=== PATIENT | female | born 2000 | race Caucasian/White ===

== ENCOUNTER 2025-04-29 20:15 | Emergency (ER) | payer MEDICAID, SELFPAY ==
[2025-04-29 20:17] VITALS: BMI 64.5
[2025-04-29 21:18] VITALS: BP 106/69; PULSE 112; RESP 16; TEMP 37.9; O2SAT 97
--- NOTE | 2025-04-29 21:50 | PD.EDNV ---
Nausea/Vomit./Diarrhea-RME/HPI General Chief complaint: Fever Stated complaint: 32 WKS PREG FEVER BODY ACHES NV Time Seen by Provider: 04/29/25 20:43 Arrival date/time: 04/29/25 20:15 RME / HPI RME / HPI Narrative: 25-year-old, 32-week female presents to the ED with a complaint of nausea and vomiting with the inability to keep anything down today. She has also had significant body aches. She was unaware of a fever until she arrived here when her temperature was noted to be 100.2. She was seen by her LEAD REFINERY SUPERVISOR today and given Zofran for her nausea and vomiting which she feels is helping. She has not had any vomiting since taking that medication. She denies any abdominal pain or pelvic cramping. She denies any dysuria or frequency. She denies any cough or difficulty breathing. Related Data Allergies Allergy/AdvReac Type Severity Reaction Status Date / Time No Known Allergies Allergy Verified 04/29/25 20:20 Review of Systems Review of Systems Systems Reviewed: All systems reviewed, normal except as documented Past Medical History Social History SMOKING STATUS: Never smoker ED Exam Narrative Physical exam: Alert and oriented 25-year-old female, no acute distress. Mild tachycardia noted, lungs are clear, no CVA tenderness noted. Abdomen is soft with minimal generalized tenderness. Moves all extremities well. No edema noted to the bilateral lower extremities. She has moist mucous membranes. No erythema noted to the posterior pharynx. Course Orders Category Date Time Status Bedside COVID-19 Antigen Test NOW Care 04/29/25 20:21 Active Bedside Influenza A&B Antigen Test NOW Care 04/29/25 20:21 Completed Vital Signs Vital signs: Vital Signs Temperature 100.2 F 04/29/25 21:18 Pulse Rate 112 H 04/29/25 21:18 Respiratory Rate 16 04/29/25 21:18 Blood Pressure 106/69 04/29/25 21:18 Pulse Oximetry (%) 97 04/29/25 21:18 Oxygen Delivery Method Room Air 04/29/25 21:18 Discharge Plan Patient/Caregiver Discharge Instructions Print Language: Lao
--- NOTE | 2025-04-29 23:01 | PC.NURSE ---
Pt was called for vitals and did not answer.
--- NOTE | 2025-04-29 23:39 | PC.NURSE ---
PT CALLED FROM [facility] NO ANSWER
--- NOTE | 2025-04-30 00:11 | PC.NURSE ---
PT CALLED FROM [facility] NO ANSWER
== END 2025-04-30 00:29 | disposition left against medical advice (07) ==
PROVIDERS: Emergency Provider Emergency Medicine
DX: O21.2 Late vomiting of pregnancy (principal); Z3A.32 32 weeks gestation of pregnancy
CPT/HCPCS: 87400; 99283

== ENCOUNTER 2025-05-30 09:41 | Observation (INO) | payer MEDICAID, SELFPAY ==
[2025-05-30] VITALS (111 sets, daily range): BP systolic 0–115; BP diastolic 0–75; PULSE 63–145; RESP 16–98; TEMP 36.8; O2SAT 97–100; BMI 31.1
--- NOTE | 2025-05-30 10:06 | XR_ITS ---
Examination: Complete OB ultrasound greater than 14 weeks Date and time of exam: May 30, 2025 1018 hours INDICATIONS: Onset vaginal bleeding today Findings: Viable intrauterine single fetus with single amniotic sac presentation cephalic spine maternal right. Cardiac motion 145 BPM Placenta right lateral grade 3 Umbilical cord insertion seen. Amniotic fluid index 12.1 cm Cervix 3.0 cm Ovaries obscured by bowel gas. Composite estimated gestational age based on BPD, head circumference, abdominal circumference, femur length is 34 weeks 6 days Estimated weight 2585 g. Survey of intracranial anatomy, spinal anatomy, abdominal anatomy, four-chamber heart performed with no abnormalities identified. Impression: Viable intrauterine gestation cephalic presentation Placenta right lateral grade 3 no abruption.
[2025-05-30 11:13] LABS: Basophils # (Auto) 0.0 Thou/mm3 (0.0-0.2); Basophils % (Auto) 0 % (0-2.5); Eosinophils # (Auto) 0.1 Thou/mm3 (0.0-0.5); Eosinophils % (Auto) 1 % (0-10); Hematocrit 27.0 % (36.0-46.0); Immature Granulocytes Auto 0.02 Thou/mm3 (0.00-0.00); Lymphocytes # (Auto) 2.5 Thou/mm3 (1.0-4.8); Lymphocytes % (Auto) 25 % (10-50); Mean Corpuscular HGB Conc 30.4 g/dl (31.0-37.0); Mean Corpuscular Hemoglobin 23.5 pg (25.0-35.0); Mean Corpuscular Volume 77 fL (80-100); Monocytes # (Auto) 0.6 Thou/mm3 (0.0-0.8); Monocytes % (Auto) 6 % (0-12); Neutrophils # (Auto) 6.7 Thou/mm3 (1.8-7.7); Neutrophils % (Auto) 68 % (37-80); Nucleated Red Blood Cell # 0.02 Thou/mm3 (0.00-0.00); Nucleated Red Blood Cell % 0 /100 WBC (0); Platelet Count 177 Thou/mm3 (140-440); RDW Standard Deviation 43.0 fL (36.4-46.3); Red Blood Count 3.49 Miln/mm3 (4.00-5.20); White Blood Count 9.9 Thou/mm3 (3.6-11.0)
[2025-05-30 11:23] LABS: Hemoglobin 8.2 g/dL (12.0-16.0)
[2025-05-30 11:25] LABS: Fibrinogen 519 mg/dL (175-375); INR 1.0 (0.9-1.3); Partial Thromboplastin Time 23.4 Seconds (22.0-36.0); Prothrombin Time 10.5 Seconds (9.0-12.2)
[2025-05-30 13:03] LABS: Alanine Aminotransferase < 7 U/L (10-49); Albumin, Serum 3.9 gm/dL (3.5-5.0); Albumin/Globulin Ratio 1.5 (1.2-2.2); Alkaline Phosphatase 96 U/L (46-116); Anion Gap 10 (7-16); Aspartate Amino Transferase 22 U/L (0-34); BUN/Creatinine Ratio 8 Ratio (12-20); Bilirubin,Total 0.9 mg/dL (0.3-1.2); Blood Urea Nitrogen 5 mg/dL (9-23); Calcium 9.4 mg/dL (8.3-10.6); Calcium (Corrected) 9.5 mg/dL (8.5-10.1); Carbon Dioxide 20.9 mMol/L (20.0-31.0); Chloride 105 mMol/L (98-107); Creatinine (Component) 0.6 mg/dL (0.6-1.3); Estimated Creatinine Clearance 129.5 mL/min (>60); Globulin 2.6 gm/dL (2.3-3.5); Glucose 107 mg/dL (74-106); LDH (Lactate Dehydrogenase) 158 U/L (120-246); Osmolality,Calculated 269 (275-295); Potassium 3.8 mMol/L (3.4-5.1); Sodium 136 mMol/L (136-145); Total Protein 6.5 gm/dL (5.7-8.2); eGFR > 60 See Note
[2025-05-30 13:45] LABS: Syphilis Reactive (Nonreactive)
[2025-05-30 13:46] LABS: MHATP/TP-PA* See Sep Rpt
[2025-05-30] MEDS: RINGERS LACTATED 1000 ML 1,000 ML 125 ML IV ×2 (14:00→18:02)
[2025-05-30 15:37] LABS: Amphetamine/Metham Scrn,Ur OB Negative (Negative); Benzoylecgonine Screen, Ur OB Negative (Negative); Opiate Screen,Urine OB Negative (Negative); THC Screen,Urine OB Negative (Negative)
[2025-05-30 17:45] LABS: Basophils # (Auto) 0.0 Thou/mm3 (0.0-0.2); Basophils % (Auto) 0 % (0-2.5); Eosinophils # (Auto) 0.1 Thou/mm3 (0.0-0.5); Eosinophils % (Auto) 1 % (0-10); Hematocrit 27.5 % (36.0-46.0); Immature Granulocytes Auto 0.06 Thou/mm3 (0.00-0.00); Lymphocytes # (Auto) 2.4 Thou/mm3 (1.0-4.8); Lymphocytes % (Auto) 21 % (10-50); Mean Corpuscular HGB Conc 30.2 g/dl (31.0-37.0); Mean Corpuscular Hemoglobin 23.6 pg (25.0-35.0); Mean Corpuscular Volume 78 fL (80-100); Monocytes # (Auto) 0.5 Thou/mm3 (0.0-0.8); Monocytes % (Auto) 5 % (0-12); Neutrophils # (Auto) 8.3 Thou/mm3 (1.8-7.7); Neutrophils % (Auto) 73 % (37-80); Nucleated Red Blood Cell # 0.00 Thou/mm3 (0.00-0.00); Nucleated Red Blood Cell % 0 /100 WBC (0); Platelet Count 159 Thou/mm3 (140-440); RDW Standard Deviation 43.7 fL (36.4-46.3); Red Blood Count 3.52 Miln/mm3 (4.00-5.20); White Blood Count 11.4 Thou/mm3 (3.6-11.0)
--- NOTE | 2025-05-30 18:00 | XR_ITS ---
Examination: age limited TECHNIQUE: Limited transabdominal sonographic images pelvis Date and time: May 30, 2025, 1658 hours INDICATIONS: Onset vaginal bleeding today. FINDINGS: Multiple images of the placenta, no abruption noted Cardiac motion 148 BPM IMPRESSION: No placental abruption
[2025-05-30 18:07] LABS: Hemoglobin 8.3 g/dL (12.0-16.0)
== END 2025-05-30 18:31 | disposition home or self-care (01) ==
PROVIDERS: Admitting Provider Obstetrics & Gynecology; Visit Provider Obstetrics & Gynecology
DX: O46.93 Antepartum hemorrhage, unspecified, third trimester (principal); Z3A.34 34 weeks gestation of pregnancy
CPT/HCPCS: 36415; 59899; 76805; 76815; 80053; 80307; 83615; 85025; 85384; 85610; 85730; 86780; 86850; 86900; 86901; 86923; J7120

== ENCOUNTER 2025-06-03 09:04 | Outpatient (CLI) | payer MEDICAID, SELFPAY ==
[2025-06-03 09:11] VITALS: BP 108/59; PULSE 88
[2025-06-03 09:26] VITALS: BP 108/59; PULSE 88; RESP 16; RESP 98; TEMP 36.8; BMI 30.4
--- NOTE | 2025-06-03 09:33 | XR_ITS ---
Examination: Biophysical profile, ultrasound Date and time of exam: June 03, 2025 1107 hours INDICATIONS: Labor evaluation, history vaginal bleeding May 30, 2025 Technique: Multiple transabdominal sonographic images of the pelvis abdomen obtained. Attention is directed to the breathing movement, gross body movement, amniotic fluid volume and tone. Findings: Amniotic fluid index 10.0 cm Total biophysical profile is 8 of 8. breathing movement is 2. Gross body movement is 2. tone is 2. Qualitative amniotic fluid volume is 2 Impression: Biophysical profile is 8 of 8.
== END 2025-06-03 12:00 | disposition home or self-care (01) ==
LOC: S4S1 09:05 → S4SX 09:05
PROVIDERS: Referring Provider Obstetrics & Gynecology; Visit Provider Obstetrics & Gynecology
DX: Z34.90 Encounter for supervision of normal pregnancy, unspecified, unspecified trimester (principal); Z36.89 Encounter for other specified antenatal screening; Z3A.00 Weeks of gestation of pregnancy not specified
CPT/HCPCS: 59025; 76819

== ENCOUNTER 2025-06-06 19:15 | Inpatient (IN) | payer MEDICAID, SELFPAY ==
[2025-06-06] VITALS (29 sets, daily range): BP systolic 100–118; BP diastolic 57–71; PULSE 77–117; RESP 16–98; TEMP 36.6–36.8; O2SAT 97–100; BMI 31.0; BMI 30.9
[2025-06-06 21:13] LABS: Basophils # (Auto) 0.0 Thou/mm3 (0.0-0.2); Basophils % (Auto) 0 % (0-2.5); Eosinophils # (Auto) 0.1 Thou/mm3 (0.0-0.5); Eosinophils % (Auto) 1 % (0-10); Hematocrit 29.4 % (36.0-46.0); Immature Granulocytes Auto 0.05 Thou/mm3 (0.00-0.00); Lymphocytes # (Auto) 2.2 Thou/mm3 (1.0-4.8); Lymphocytes % (Auto) 20 % (10-50); Mean Corpuscular HGB Conc 29.9 g/dl (31.0-37.0); Mean Corpuscular Hemoglobin 22.8 pg (25.0-35.0); Mean Corpuscular Volume 76 fL (80-100); Monocytes # (Auto) 0.6 Thou/mm3 (0.0-0.8); Monocytes % (Auto) 6 % (0-12); Neutrophils # (Auto) 7.8 Thou/mm3 (1.8-7.7); Neutrophils % (Auto) 72 % (37-80); Nucleated Red Blood Cell # 0.05 Thou/mm3 (0.00-0.00); Nucleated Red Blood Cell % 1 /100 WBC (0); Platelet Count 185 Thou/mm3 (140-440); RDW Standard Deviation 43.2 fL (36.4-46.3); Red Blood Count 3.86 Miln/mm3 (4.00-5.20); White Blood Count 10.8 Thou/mm3 (3.6-11.0)
[2025-06-06 21:26] LABS: Hemoglobin 8.8 g/dL (12.0-16.0)
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
[2025-06-06 23:54] LABS: Amphetamine/Metham Scrn,Ur OB Negative (Negative); Benzoylecgonine Screen, Ur OB Negative (Negative); Opiate Screen,Urine OB Negative (Negative); THC Screen,Urine OB Negative (Negative)
[2025-06-07] VITALS (235 sets, daily range): BP systolic 78–135; BP diastolic 48–79; PULSE 71–139; RESP 16–17; TEMP 36.5–36.9; O2SAT 85–100
[2025-06-07 00:46] LABS: MHATP/TP-PA* See Sep Rpt; Syphilis Reactive (Nonreactive)
[2025-06-07] MEDS: RINGERS LACTATED 1000 ML 1,000 ML 100 ML IV (12:25)
--- NOTE | 2025-06-07 12:44 | PD.LDPN ---
Documentation for date of: 06/07/25 OB Labor Progress Note Pain Control Pain control: epidural Comments: Patient comfortable with epidural in place Pelvic Exam Dilation (cm): 5 Effacement (%): 70 station: -2 Amniotic membrane status: Bulging Contractions Monitor mode: External Contraction frequency: 3 Contraction pattern: Tetanic Contraction intensity: Mild Status status: Category l Assessment and Plan Assessment: active labor Plan OB labor note: continuous present management Comments: Will AROM patient after my 12:30 scheduled and then anticipate .
--- NOTE | 2025-06-07 18:32 | PD.LDPN ---
Documentation for date of: 06/07/25 OB Labor Progress Note Pain Control Pain control: epidural Pelvic Exam Dilation (cm): 7 Effacement (%): 80 station: -2 Amniotic membrane status: Ruptured Comments: Patient reported leaking fluids. I ruptured the remainder of her bag and copious clear fluid noted. Her BOW ruptured approximately 6:25 PM. IUPC placed, FSE placed Contractions Monitor mode: External Contraction frequency: 2-4 Contraction intensity: Moderate Status status: Category ll Comments: Occasional variable decelerations, 3-minute deceleration after I AROMed the patient. No cord palpated. Baby came back to baseline with repositioning. Assessment and Plan Assessment: induction ongoing Plan OB labor note: continuous present management and begin Pitocin augmentation (Once FHTs stabilize) Comments: Consider amnioinfusion if decelerations continue.
[2025-06-07] MEDS: OXYTOCIN in NS 20 units 20 UNIT/1,000 ML BAG 125 UNIT IV (19:23)
[2025-06-07] MEDS: BENZO/LANO/ALOE (Dermoplast) 60 GM CAN 1 SPRAY TOP (19:52)
--- NOTE | 2025-06-07 21:30 | PD.LDDELS ---
Vacuum Assisted Delivery General Patient Counseled by physician:: Yes Informed consent to patient:: Yes Estimated weight:: 3628.739 g Cervical dilation:: fully dilated station:: +3 position:: OA Molding:: No Caput:: No Vacuum Application Vacuum type:: Kiwi Vacuum application:: flexing median Total vacuum time (min):: 1 Cup Placement Flexion point identified:: Yes Cup approp. for head position:: Yes Maternal tissue excluded:: Yes Vacuum Procedure Number of pulls (contractions):: 2 Number of pop-offs:: 1 Recommended range maintained:: Yes Vacuum reduced between pulls:: Yes Advancement made each pull:: Yes Vacuum successful:: Yes Immediate [facility] Evaluation Immediate assessment:: no apparent injury Hand-off care to:: nursery nurse Additional Comments Additional comments: Blood gases sent. Baby in stable condition in delivery room. Venous stasis noted in the baby's face, with some molding of the head. No injuries to the scalp noted from vacuum application. Data ([place]y) Data Hx Section: No Maternal Blood Type: O Pos Rubella Titre: Negative RPR: Reactive Labs: Positive: RPR and Negative: Hepatitis B, HIV, Chlamydia, Gonorrhea and Group Beta Strep : 4 Term: 2 : 1 Livin Abortions: Spontaneous & Theraputic: 0 Delivery Data (Khoury) Labor Data Initiation of labor: Induction Induction/Augmentation Agent: Cervidil ROM date: 06/07/25 ROM time: 18:18 Amniotic membrane rupture type: Spontaneous Amniotic fluid description: Clear Delivery Data EDC: 06/20/25 EDC calculated by:: LMP/early US confirmation Date of arrival to unit: 06/06/25 Onset of labor date: 06/07/25 Onset of labor time: 12:30 Complete dilation date: 06/07/25 Complete dilation time: 19:05 [facility] delivery date: 06/07/25 delivery time: 19:20 Gestational age (weeks): 38 Gestational age (days): 1 Placenta delivery date: 06/07/25 Placenta delivery time: 19:23 Stage 1 total time: Labor - Stage 1 Duration 6 hours and 35 minutes Delivered by: [facility] ([facility]) Delivery nurse: kevin ferguson rn [place] nurse: kirsten urbina rn [employer] Specialist at delivery: No Support person(s) at delivery: father of baby, Other staff at delivery: nisreen higuera rn, enrrique rn , kirsten wong rnc charge nurse Delivery Method Delivery method: Operative Vaginal Delivery Presentation: Vertex position: OA Anesthesia Type Anesthesia Type: Epidural Delivery Room Medications Delivery room medications: Pitocin 20 u IV Placenta Placenta delivery description: Spontaneous Cord blood sent to lab: Yes cord blood collection: Cord Blood Type, Arterial Cord Blood Gas and Venous Cord Blood Gas Episiotomy Episiotomy description: None EBL Estimated blood loss (ml): 150 Umbilical Cord cord description: 3 Vessels Additional Procedures The patient is a 25-year-old -1-0-1 who was signed out to me this morning 2 cm dilated after a Cervidil induction for gestational diabetes, history of a stillbirth. The patient was 7 cm dilated with a bulging bag of water around 6:30 PM.. I was called to bedside as patient was leaking. I ruptured the bag of water and copious clear fluid was noted. Immediately after rupture, the baby had a deceleration down to the 60s to 90s for approximately 4 minutes. This was relieved by placement of oxygen and repositioning. An FSE and IUPC were placed. With each contraction, the baby started to have more severe variable decelerations down to the 90s with spontaneous return to baseline. I called the OR team in in order to prepare for as patient was only 7 cm. The patient then began feeling pressure and she rapidly progressed to 8-1/2 then 9 cm. The heart tones returned to the 140s with some variable decelerations with contractions. The patient was able to push and reduce a small anterior lip. She then pushed approximately 10-15 minutes. With the last push,a vacuum was placed. It was a Kiwi vacuum applied to the head in order to extract the head quickly due to decelerations. A total of 2 pulls were needed with one pop-off. Total vacuum time less than 30 seconds. Findings :liveborn male in the OA presentation with no nuchal cord with a loose nuchal cord x 1 and no meconium. Apgars were 8 and 9 weight was 7 pounds 14 ounces. The placenta was complete spontaneous grossly normal patient delivered over an intact perineum. Of note the baby was vigorous and placed on mom's chest the cord was clamped and cut after waiting about 30 seconds the baby was taken to the warmer to be evaluated by the NICU nurse and respiratory therapist. Blood gases were sent. Complications were none. Condition both mom and were in stable condition in the delivery room. Complications Complications: None [facility] Data (Khoury) Elysian Data order: 1 's gender: Male Identification band number: [id number] weight (gms): 3560 g Weight (pounds): 7 lbs and 13.6 ozs Elysian length: 53.34 cm 1 minute: 8 5 minutes: 9 Additional Comments Additional comments: Blood gases were sent at delivery.
--- NOTE | 2025-06-07 22:05 | PC.NURSE ---
2145: PT ASSISTED OOB TO BR . PATIENT DENIES NUMBNESS OR WEAKNESS TO BILATERAL LOWER EXTREMITIES. PATIENT AMBULATED WELL TO BATHROOM. PT UNABLE TO VOID AT THIS TIME. PATIENT AMBULATED TO ROOM 461 ACCOMPANIED BY RN AND FATHER OF BABY. PATIENT TOLERATED TRANSFER WELL. PATIENT ASSISTED INTO PP BED. PATIENT INSTRUCTED TO PO HYDRATE AND CALL NURSE WHEN SHE FEELS THE NEED TO VOID.
[2025-06-07] MEDS: IBUPROFEN TAB 400 MG TABLET 800 MG PO (22:30)
[2025-06-08] VITALS (7 sets, daily range): BP systolic 101–119; BP diastolic 64–75; PULSE 77–84; RESP 16–18; TEMP 36.6–37; O2SAT 97–99
[2025-06-08 05:47] LABS: Basophils # (Auto) 0.0 Thou/mm3 (0.0-0.2); Basophils % (Auto) 0 % (0-2.5); Eosinophils # (Auto) 0.0 Thou/mm3 (0.0-0.5); Eosinophils % (Auto) 0 % (0-10); Hematocrit 23.0 % (36.0-46.0); Immature Granulocytes Auto 0.06 Thou/mm3 (0.00-0.00); Lymphocytes # (Auto) 2.4 Thou/mm3 (1.0-4.8); Lymphocytes % (Auto) 19 % (10-50); Mean Corpuscular HGB Conc 29.6 g/dl (31.0-37.0); Mean Corpuscular Hemoglobin 22.5 pg (25.0-35.0); Mean Corpuscular Volume 76 fL (80-100); Monocytes # (Auto) 0.9 Thou/mm3 (0.0-0.8); Monocytes % (Auto) 7 % (0-12); Neutrophils # (Auto) 9.6 Thou/mm3 (1.8-7.7); Neutrophils % (Auto) 74 % (37-80); Nucleated Red Blood Cell # 0.04 Thou/mm3 (0.00-0.00); Nucleated Red Blood Cell % 0 /100 WBC (0); Platelet Count 126 Thou/mm3 (140-440); RDW Standard Deviation 43.0 fL (36.4-46.3); Red Blood Count 3.02 Miln/mm3 (4.00-5.20); White Blood Count 13.0 Thou/mm3 (3.6-11.0)
[2025-06-08 05:48] LABS: Hemoglobin 6.8 g/dL (12.0-16.0)
[2025-06-08] MEDS: IBUPROFEN TAB 400 MG TABLET 800 MG PO (06:15)
[2025-06-08] MEDS: HYDROcodone/APAP 5/325 TABLET 1 TAB PO ×2 (07:52→22:03)
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
[2025-06-08 11:40] LABS: Path Review Blood Smear Sent to Pathologist
[2025-06-08] MEDS: IRON SUCROSE CPLX INJ 20 MG/ML VIAL 5 ML 200 MG IVP (13:45)
--- NOTE | 2025-06-08 13:49 | PC.CC ---
Harika Leo is a 25-year-old female admitted for labor and delivery care. Sole Filler made contact with Pt at bedside to complete ob assessment and discuss discharge disposition. Role and reason for the contact was explained to Pt. Demographic information was verified. Pt identified father of baby Rosalio Leo [phone] as surrogate decision maker. Pt is independent with all ADLs, no source of DME. PCP is [facility] [place]. At time of discharge patient will return home, family will provide transportation. Mother plans on combo feeing, has car seat, and all supplies for baby. Mother reported hx of past substance no usage in the past 20 months, no DV, no CPS. Mother reports support system provided by extended family and FOB. Discharge Plan: Home Next of Kin: Rosalio Leo [phone] PCP: [facility]
[2025-06-08] MEDS: HYDROCORTISONE ACET CR 2.5% 30 GM TUBE PR (17:56)
[2025-06-08 18:38] LABS: Basophils # (Auto) 0.0 Thou/mm3 (0.0-0.2); Basophils % (Auto) 0 % (0-2.5); Eosinophils # (Auto) 0.1 Thou/mm3 (0.0-0.5); Eosinophils % (Auto) 1 % (0-10); Hematocrit 24.9 % (36.0-46.0); Immature Granulocytes Auto 0.08 Thou/mm3 (0.00-0.00); Lymphocytes # (Auto) 2.7 Thou/mm3 (1.0-4.8); Lymphocytes % (Auto) 25 % (10-50); Mean Corpuscular HGB Conc 29.7 g/dl (31.0-37.0); Mean Corpuscular Hemoglobin 22.6 pg (25.0-35.0); Mean Corpuscular Volume 76 fL (80-100); Monocytes # (Auto) 0.5 Thou/mm3 (0.0-0.8); Monocytes % (Auto) 4 % (0-12); Neutrophils # (Auto) 7.5 Thou/mm3 (1.8-7.7); Neutrophils % (Auto) 69 % (37-80); Nucleated Red Blood Cell # 0.04 Thou/mm3 (0.00-0.00); Nucleated Red Blood Cell % 0 /100 WBC (0); Platelet Count 151 Thou/mm3 (140-440); RDW Standard Deviation 42.5 fL (36.4-46.3); Red Blood Count 3.27 Miln/mm3 (4.00-5.20); White Blood Count 10.8 Thou/mm3 (3.6-11.0)
[2025-06-08 18:39] LABS: Hemoglobin 7.4 g/dL (12.0-16.0)
[2025-06-09 03:44] VITALS: BP 112/73; PULSE 72; RESP 16; TEMP 36.9; O2SAT 96
[2025-06-09 06:15] LABS: Basophils # (Auto) 0.0 Thou/mm3 (0.0-0.2); Basophils % (Auto) 0 % (0-2.5); Eosinophils # (Auto) 0.2 Thou/mm3 (0.0-0.5); Eosinophils % (Auto) 2 % (0-10); Hematocrit 24.6 % (36.0-46.0); Hemoglobin 7.2 g/dL (12.0-16.0); Immature Granulocytes Auto 0.12 Thou/mm3 (0.00-0.00); Lymphocytes # (Auto) 3.0 Thou/mm3 (1.0-4.8); Lymphocytes % (Auto) 30 % (10-50); Mean Corpuscular HGB Conc 29.3 g/dl (31.0-37.0); Mean Corpuscular Hemoglobin 22.5 pg (25.0-35.0); Mean Corpuscular Volume 77 fL (80-100); Monocytes # (Auto) 0.6 Thou/mm3 (0.0-0.8); Monocytes % (Auto) 6 % (0-12); Neutrophils # (Auto) 6.3 Thou/mm3 (1.8-7.7); Neutrophils % (Auto) 61 % (37-80); Nucleated Red Blood Cell # 0.05 Thou/mm3 (0.00-0.00); Nucleated Red Blood Cell % 1 /100 WBC (0); Platelet Count 152 Thou/mm3 (140-440); RDW Standard Deviation 43.6 fL (36.4-46.3); Red Blood Count 3.20 Miln/mm3 (4.00-5.20); White Blood Count 10.2 Thou/mm3 (3.6-11.0)
[2025-06-09 08:00] VITALS: BP 113/73; PULSE 79; RESP 16; TEMP 36.7; O2SAT 98
[2025-06-09] MEDS: IBUPROFEN TAB 400 MG TABLET 800 MG PO (08:32)
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
== END 2025-06-09 13:35 | disposition home or self-care (01) | DRG 560 ==
LOC: S4S1 19:38 → S4SX 19:38 → S4NX 06-07 00:55 → S4SX 06-07 01:05 → S4NX 06-07 21:52
PROVIDERS: Obstetrics & Gynecology; Admitting Provider Obstetrics & Gynecology; Referring Provider Obstetrics & Gynecology; Visit Provider Obstetrics & Gynecology
DX: O24.12 Pre-existing type 2 diabetes mellitus, in childbirth (principal); E11.9 Type 2 diabetes mellitus without complications; O99.02 Anemia complicating childbirth; Z3A.38 38 weeks gestation of pregnancy; Z37.0 Single live birth; O99.12 Other diseases of the blood and blood-forming organs and certain disorders involving the immune mechanism complicating childbirth; D68.61 Antiphospholipid syndrome; O98.12 Syphilis complicating childbirth; F15.11 Other stimulant abuse, in remission; I87.8 Other specified disorders of veins; O99.42 Diseases of the circulatory system complicating childbirth; O69.81X0 Labor and delivery complicated by cord around neck, without compression, not applicable or unspecified; O76 Abnormality in fetal heart rate and rhythm complicating labor and delivery; Z87.59 Personal history of other complications of pregnancy, childbirth and the puerperium; Z91.410 Personal history of adult physical and sexual abuse; Z79.4 Long term (current) use of insulin; Z78.9 Other specified health status
CPT/HCPCS: 36415; 59409; 80307; 85025; 86780; 86850; 86900; 86901; 86923; 94762; J1100; J1756; J2405; J2590; J2795; J3490; J7120; A9270